=== PATIENT | female | born 1990 | race Caucasian/White ===

== ENCOUNTER 2021-02-17 20:41 | Emergency (ER) | payer OTHER ==
[~2021-02-17 20:41] MED LIST: ANTIVERT 25MG T25 MG PO; BENADRYL 50MG C50 MG PO; FLEXERIL 10 MG10 MG PO; IMITREX50 MG PO; LODINE CAP 300300 MG PO; MECLIZINE HCL25 MG PO; NAPROSYN500 MG PO; ONDANSETRON ODT4 MG PO; PREDNISONE20 MG PO; VISTARIL 50 MG50 MG PO; ZOFRAN ODT 4 MG4 MG PO; ZOFRAN4 MG PO
== END 2021-02-17 23:50 | disposition home or self-care (01) ==
LOC: ER1 20:41
DX: J06.9 Acute upper respiratory infection, unspecified (principal); Z20.822 Contact with and (suspected) exposure to COVID-19
CPT/HCPCS: 0240U; 87081; 87880; 99283

== ENCOUNTER 2021-05-28 23:21 | Emergency (ER) | payer OTHER | END 2021-05-29 01:37 | disposition home or self-care (01) | LOC: ER1 23:21 | DX: T63.444A Toxic effect of venom of bees, undetermined, initial encounter (principal) | CPT/HCPCS: 96374; 96375; 99281; J1200; J2930 ==

== ENCOUNTER 2021-08-05 15:06 | Emergency (ER) | payer OTHER ==
[2021-08-05 16:02] LABS: HEMOGLOBIN 12.3 gm/dl (12.3-15.3); RED BLOOD COUNT 4.35 M/UL (4.00-5.10); WHITE BLOOD COUNT 4.9 K/UL (4.5-11.0)
[2021-08-05 16:28] LABS: BUN/CREATININE RATIO 10 (0-10)
[2021-08-05] MEDS ORDERED: OMNICEF 300 MG300 MG PO (20:23)
== END 2021-08-05 21:55 | disposition home or self-care (01) ==
LOC: ER1 15:06
PROVIDERS: Physician Assistant
DX: O99.511 Diseases of the respiratory system complicating pregnancy, first trimester (principal); U07.1 COVID-19; O23.41 Unspecified infection of urinary tract in pregnancy, first trimester; Z3A.13 13 weeks gestation of pregnancy; Z23 Encounter for immunization
CPT/HCPCS: 80053; 81001; 85025; 99284; J7030; M0243; U0002

== ENCOUNTER 2021-10-27 15:09 | Emergency (ER) | payer OTHER ==
[~2021-10-27 15:09] MED LIST changes: +OMNICEF 300 MG300 MG PO
[2021-10-27 15:38] LABS: HEMOGLOBIN 10.7 gm/dl (12.3-15.3); RED BLOOD COUNT 3.92 M/UL (4.00-5.10)
[2021-10-27 16:02] LABS: BUN/CREATININE RATIO 13 (0-10)
== END 2021-10-27 18:00 | disposition home or self-care (01) ==
LOC: ER1 15:09
PROVIDERS: Physician Assistant
DX: O23.42 Unspecified infection of urinary tract in pregnancy, second trimester (principal); Z3A.24 24 weeks gestation of pregnancy; Z20.822 Contact with and (suspected) exposure to COVID-19
CPT/HCPCS: 80053; 81001; 85025; 87081; 87880; 99283; U0002

== ENCOUNTER 2021-11-13 18:41 | Emergency (ER) | payer OTHER ==
[2021-11-13 19:53] LABS: HEMOGLOBIN 10.5 gm/dl (12.3-15.3); RED BLOOD COUNT 3.93 M/UL (4.00-5.10); WHITE BLOOD COUNT 9.3 K/UL (4.5-11.0)
[2021-11-13 20:33] LABS: BUN/CREATININE RATIO 13 (0-10)
[2021-11-13] MEDS ORDERED: CEFUROXIME500 MG PO (22:34)
[2021-11-13] MEDS ORDERED: ONDANSETRON ODT4 MG SL (22:34)
== END 2021-11-13 22:43 | disposition home or self-care (01) ==
LOC: ER1 18:41
PROVIDERS: Physician Assistant Medical
DX: O99.512 Diseases of the respiratory system complicating pregnancy, second trimester (principal); J32.9 Chronic sinusitis, unspecified; O23.42 Unspecified infection of urinary tract in pregnancy, second trimester; N39.0 Urinary tract infection, site not specified; Z3A.27 27 weeks gestation of pregnancy; Z20.822 Contact with and (suspected) exposure to COVID-19
CPT/HCPCS: 0240U; 80053; 81001; 85025; 87081; 87086; 87880; 99283

== ENCOUNTER 2021-11-19 18:15 | Outpatient (CLI) | payer OTHER ==
[~2021-11-19 18:15] MED LIST changes: +CEFUROXIME500 MG PO; +ONDANSETRON ODT4 MG SL
== END 2021-11-19 21:00 | disposition home or self-care (01) ==
LOC: GENOP 18:15
DX: O44.13 Complete placenta previa with hemorrhage, third trimester (principal); Z3A.28 28 weeks gestation of pregnancy
CPT/HCPCS: G0463

== ENCOUNTER 2021-12-07 20:35 | Outpatient (CLI) | payer OTHER ==
[2021-12-07 22:23] LABS: RED BLOOD COUNT 3.82 M/UL (4.00-5.10); WHITE BLOOD COUNT 11.7 K/UL (4.5-11.0)
[2021-12-07 22:49] LABS: BUN/CREATININE RATIO 11 (0-10)
== END 2021-12-07 23:48 | disposition home or self-care (01) ==
LOC: GENOP 20:35
PROVIDERS: Obstetrics & Gynecology
DX: O44.13 Complete placenta previa with hemorrhage, third trimester (principal); O99.891 Other specified diseases and conditions complicating pregnancy; R07.9 Chest pain, unspecified; R42 Dizziness and giddiness; Z3A.30 30 weeks gestation of pregnancy
CPT/HCPCS: 36415; 80053; 81001; 82550; 82553; 82731; 83874; 84484; 85025; 93005; 96372

== ENCOUNTER 2021-12-15 13:50 | Outpatient (CLI) | payer OTHER ==
[2021-12-15] MEDS ORDERED: MACROBID 100 M100 MG PO (22:05)
== END 2021-12-15 22:20 | disposition home or self-care (01) ==
LOC: GENOP 13:50
DX: O99.891 Other specified diseases and conditions complicating pregnancy (principal); R10.30 Lower abdominal pain, unspecified; M54.50 Low back pain, unspecified; Z3A.31 31 weeks gestation of pregnancy
CPT/HCPCS: 81001; 83518

== ENCOUNTER 2021-12-16 15:39 | Outpatient (CLI) | payer OTHER ==
[~2021-12-16] VITALS: Ht 152.4 cm; Wt 70.3 kg
[~2021-12-16 15:39] MED LIST changes: +MACROBID 100 M100 MG PO
== END 2021-12-16 18:39 | disposition home or self-care (01) ==
LOC: GENOP 15:39
DX: O47.03 False labor before 37 completed weeks of gestation, third trimester (principal); O26.853 Spotting complicating pregnancy, third trimester; Z3A.32 32 weeks gestation of pregnancy
CPT/HCPCS: 96372; J0696

== ENCOUNTER 2021-12-19 09:10 | Outpatient (CLI) | payer OTHER ==
[2021-12-19 09:46] LABS: HEMOGLOBIN 10.1 gm/dl (12.3-15.3); RED BLOOD COUNT 3.92 M/UL (4.00-5.10); WHITE BLOOD COUNT 11.5 K/UL (4.5-11.0)
[2021-12-19 10:18] LABS: BUN/CREATININE RATIO 9 (0-10)
== END 2021-12-19 10:45 | disposition other institution (70) ==
LOC: GENOP 09:10
PROVIDERS: Obstetrics & Gynecology
DX: O44.13 Complete placenta previa with hemorrhage, third trimester (principal); O34.219 Maternal care for unspecified type scar from previous cesarean delivery; O99.283 Endocrine, nutritional and metabolic diseases complicating pregnancy, third trimester; O99.343 Other mental disorders complicating pregnancy, third trimester; E28.2 Polycystic ovarian syndrome; F32.A Depression, unspecified; F41.9 Anxiety disorder, unspecified; Z20.822 Contact with and (suspected) exposure to COVID-19; Z3A.32 32 weeks gestation of pregnancy
CPT/HCPCS: 36415; 80053; 85025; 85384; 85610; 85730; 86850; 96360; 96367; 96372; J0610; J0702; J3475; U0002

== ENCOUNTER 2022-01-23 06:01 | Emergency (ER) | payer OTHER ==
[2022-01-23 06:27] LABS: HEMOGLOBIN 8.8 gm/dl (12.3-15.3); RED BLOOD COUNT 3.2 M/UL (4.00-5.10)
[2022-01-23 07:03] LABS: BUN/CREATININE RATIO 14 (0-10)
== END 2022-01-23 10:50 | disposition home or self-care (01) ==
LOC: ER1 06:01
PROVIDERS: Physician Assistant Medical
DX: R07.89 Other chest pain (principal); D64.9 Anemia, unspecified
CPT/HCPCS: 71045; 80053; 81001; 82550; 82553; 83880; 84484; 85025; 85610; 85730; 93005; 93970; 96374; 96375; 99285; C9113; J2270; J2405; Q9967

== ENCOUNTER 2022-04-11 11:43 | Emergency (ER) | payer OTHER ==
[2022-04-11 13:33] LABS: HEMOGLOBIN 12.7 gm/dl (12.3-15.3); RED BLOOD COUNT 5.23 M/UL (4.00-5.10); WHITE BLOOD COUNT 11.3 K/UL (4.5-11.0)
[2022-04-11 14:11] LABS: BUN/CREATININE RATIO 20 (0-10)
== END 2022-04-11 15:12 | disposition left against medical advice (07) ==
LOC: ER1 11:43
PROVIDERS: Physician Assistant
DX: R10.84 Generalized abdominal pain (principal)
CPT/HCPCS: 80053; 81001; 83690; 84703; 85025; 99283; Q9967